=== PATIENT | female | born 1990 | race Caucasian/White ===

== ENCOUNTER 2017-03-30 09:40 | Inpatient (IN) ==
[2017-03-30] MEDS ORDERED: Ondansetron 4 MG/2 ML VIAL IVP PRN ×3 (10:20→16:23)
[2017-03-30] MEDS ORDERED: Famotidine 20 MG/2 ML VIAL IVP PRN ×2 (10:20→16:23)
[2017-03-30] MEDS ORDERED: Naloxone 0.4 MG/ML INJ IVP PRN ×2 (10:20→12:54)
[2017-03-30] MEDS ORDERED: Metoclopramide 10 MG/2 ML VIAL IVP ONE (10:25)
[2017-03-30] MEDS ORDERED: CeFAZolin Pre 3,000 MG/100 ML 3,000 MG/100 ML BAG IVPB ONE (10:25)
[2017-03-30] MEDS ORDERED: Ringers Solution, Lactated 1,000 ML IVC ONE (10:29)
[2017-03-30] MEDS ORDERED: Oxytocin 20 units/ LR 1000 mL 20 UNIT/1,000 ML BAG IVC SCH ×2 (10:30→14:00)
[2017-03-30] MEDS ORDERED: Ringers Solution, Lactated 1,000 ML IVC SCH ×2 (10:30→13:00)
[2017-03-30 10:31] LABS: Basophils % 0.3 %; Eosinophils % 0.2 %; Hematocrit 35.4 % (35.3-44.9); Hemoglobin 11.3 g/dL (11.5-15.4); Immature Granulocytes % 0.6 % (0-4); Lymphocytes # 1.7 K/mcL (0.6-4.6); Lymphocytes % 19.7 %; Mean Corpuscular HGB Conc 31.9 g/dL (31.6-35.5); Mean Corpuscular Hemoglobin 27.5 pg (28.0-33.3); Mean Corpuscular Volume 86.1 fL (83.0-100.0); Mean Platelet Volume 12.3 fL (9.4-12.4); Monocytes # 0.8 K/mcL (0.0-1.3); Monocytes % 9.2 %; Neutrophils # 6.1 K/mcL (1.6-8.9); Platelet Count 190 K/mcL (140-400); Red Blood Count 4.11 M/mcL (3.82-4.97); Red Cell Distribution Width 12.9 % (11.5-14.5)
--- NOTE | 2017-03-30 10:52 | OB/GYN History & Physical ---
Date of Encounter: 03/30/17 Time of Encounter: 10:45 Assessment and Plan (1) 39 weeks gestation of Current visit: Yes Status: Acute at 39 4/7 weeks gestation who presents to L&D for due to history of 2 prior c-sections. Plan: -NPO -LR IVF -pre-op cefazolin -zofran, pepcid prn (2) Previous delivery, antepartum Current visit: Yes Status: Acute History of Present Illness Chief complaint: HPI: Ms. Holly is a 27 year old female at 39 4/7 weeks gestation who presents to L&D for . She has had an uncomplicated . She requires a because she has a history of 2 prior sections. She denies contractions , vaginal bleeding or discharge. She does have some nausea and heartburn. She denies LYLE, dizziness, vision changes, CP, SOB, abd pain. GBS - O+, antibiody negative Hep B negative HIV negative RPR negative Rubella immune Varicella immune Obstetrical History - Pregnancies : 3 Para: 2 Term: 2 : 0 Ab's: 0 Livin Medications and Allergies Formula Tablet 1 tab OP DAILY 03/30/17 [History] 3 Allergy/AdvReac Type Severity Reaction Status Date / Time No Known Drug Allergies Allergy none Verified 03/30/17 10:28 Review of System OB All systems PM: reviewed and no additional remarkable complaints except as stated Exam - Constitutional Constitutional: well developed, well nourished, no acute distress, average body habitus - HEENT HEENT: EOMI, PERRL, Normocephaly, Mucus Membranes Moist - Neck Neck exam: normal inspection, supple, trachea midline - Lungs Respiratory exam: CTAB - Cardiovascular Cardiovascular exam: RRR, +S1, +S2 - Abdomen Abdomen: Present: bowel sounds normal, gravid, non tender - Extremities Extremities exam: normal capillary refill, normal inspection, pedal edema (mild) , radial pulses palpable and symmetrical Deep Tendon Reflex Grade: 2+ Normal - Uterus Uterus exam: Present: normal size, normal contour Results Result Diagrams: 03/30/17 10:18 Abnormal lab results Hgb 11.3 g/dL (11.5-15.4) L 03/30/17 10:18 MCH 27.5 pg (28.0-33.3) L 03/30/17 10:18 All other labs normal. - VTE Reasons for not Prescribing Prophylaxis: Treatment not Indicated - Low risk for VTE - Attending Attestation I examined this patient and my medical decision-making was reviewed with the Resident Physician. I agree with the documented findings, disposition and treatment plan as described except to the extent set forth below.
--- NOTE | 2017-03-30 11:27 | Anesthesia Evaluation PreOp ---
Date of Encounter: 03/30/17 Time of Encounter: 11:25 - Past History Planned Operation: Repeat C-S Cardiac History: Denies any Significant Hx Pulmonary History: Denies Any Significant HX COMPUTER TECHNOLOGY INSTRUCTOR History: Denies Any Significant HX Other Medical History: Denies Any Significant HX Anesthesia History: Past Anesthesia (C-S, labor epidural), Problems (PDPH after spinal; difficulty placing first spinal; itching with morphine (but patient is ok to receive morphine with this spinal)) Medications and Allergies Formula Tablet 1 tab OP DAILY 03/30/17 [History] 3 Allergy/AdvReac Type Severity Reaction Status Date / Time No Known Drug Allergies Allergy none Verified 03/30/17 10:28 - Meds/Allergy Pre-op Review Medications Reviewed: Yes Allergies Reviewed: Yes Beta Blockers on Current Med List: No Anesthesia Results - Labs 03/30/17 10:18 Anesthesia Exam Weight: 95 kg NPO (# of Hours): > 8 hrs - HEENT Pupil (Motor): Pupils equal, EOMI Mallampati: II Teeth: Normal Oral Opening: Greater than 3 - COMPUTER TECHNOLOGY INSTRUCTOR LOC: Oriented COMPUTER TECHNOLOGY INSTRUCTOR Motor: Normal RUE, Normal LUE, Normal RLE, Normal LLE, Normal Face - Cardiac Rhythm: Regular Murmur: None - Pulmonary Breath Sounds: bilateral Clear Respiratory Effort: Symmetrical Anesthesia Assess/Plan ASA Score: 2 Modified [place] Scale for Level of Consciousness: Cooperative, oriented, and tranquil Anesthetic Plan: Regional Monitoring Plan: Standard Monitors Recovery Plan: PACU
[2017-03-30] MEDS ORDERED: *HR* Morphine Sulfate/PF 5 MG/10 ML AMPUL ONE (12:08)
[2017-03-30 12:09] LABS: Amphetamine Screen,Urine Negative ng/mL (Cutoff=1000); Barbiturate Screen,Urine Negative ng/mL (Cutoff=200); Benzodiazepines Screen,Urine Negative ng/mL (Cutoff=200); Cannabinoid Screen,Urine Negative ng/mL (Cutoff = 50); Cocaine Screen,Urine Negative ng/mL (Cutoff= 300); Opiate Screen,Urine Negative ng/mL (Cutoff=300); Phencyclidine Screen,Urine Negative ng/mL (Cutoff=25)
[2017-03-30] MEDS ORDERED: EPHEDrine 50 MG/ML VIAL ONE (12:21)
[2017-03-30] MEDS ORDERED: Ondansetron 4 MG/2 ML VIAL ONE (12:28)
[2017-03-30] MEDS ORDERED: *HR* Oxytocin 10 UNIT/ML VIAL IM ONE (12:28)
[2017-03-30] MEDS ORDERED: Dexamethasone 4 MG/ML VIAL ONE (12:28)
[2017-03-30] MEDS ORDERED: *HR* Meperidine 25 MG/ML SYRINGE IVP PRN (12:54)
[2017-03-30] MEDS ORDERED: *HR* Promethazine 25 MG/ML VIAL IVP PRN (12:54)
[2017-03-30] MEDS ORDERED: *HR* HYDROmorphone (PF) 1 MG/ML SYRINGE IVP PRN (12:54)
[2017-03-30] MEDS ORDERED: Ondansetron 4 MG/2 ML VIAL IVP ONE (12:54)
--- NOTE | 2017-03-30 13:00 | Anesthesia Procedures ---
Date of Encounter: 03/30/17 Time of Encounter: 12:08 Procedures: Anesthesia - Epidural/Spinal Patient ID/Chart reviewed: Yes Patient examined: Yes OB Eval: Gestational age: 39 OB Eval: : 2 OB Eval: Hx Para: 1 OB Eval: Contractions: Non-stressed pattern Consent Obtained: Yes Site Prep: Aseptic Technique, Sterile prep and drape, Povidone-Iodine 1% Patient position: upright Local Anesthetic: Lidocaine 1% Amount of Local Anesthetic used: 3 Interspace Used: L4-L5 Loss of Resistance (ITZ): No Blood: No CSF: Yes Paresthesia: No Spinal Needle Gauge: 25 Spinal Dose: Bupivicaine 1.6ml 0.75% duramorph 200mcg Procedure: Spinal first pass in upright position without any immediate noted complications. Pt supine for csection prep and drape. Spinal level T4 Vitals + FHT's: See anesthesia record. VSS throughout.
--- NOTE | 2017-03-30 13:50 | OB/GYN Procedure Note ---
Section - Date of procedure: 03/30/17 Preop diagnosis: desires repeat , desires sterilization Post-op diagnosis: same (adhesions) Procedure: repeat low transverse, bilateral tubal ligation, other (extensive lysis of adhesions) Surgeon: Pacheco High Estimated blood loss (cc): 700 Anesthesiologist: Val Jones Anesthesia Type: Spinal section complications: none Disposition: PACU Specimens: Placenta, Right tube segment, Left tube segment - Infant (s) Infant A Infant Delivery Date: 03/30/17 Delivery Time: 12:44 Presentation: vertex Gender: Female Viability: Viable Pounds: 7 Ounces: 13 at 1 minute: 9 at 5 minutes: 9 Specimens collected: cord blood Placenta: complete extraction - Narrative Narrative: Patient was taken to the operating room. After satisfactory spinal anesthesia was achieved, patient placed in supine position and Zendejas catheter inserted and prepped and draped in usual manner. After appropriate timeout, the abdomen was entered through a standard Maylard incision. The Matthias retractor was placed. The uterine cavity was entered sharply extended laterally. Fluid was clear. With fundal pressure the head was delivered. suctioned upon delivery of the head. The remainder of the infant was delivered, umbilical cord doubly clamped and cut, and handed to nursery staff for further evaluation. Placenta was removed. The uterus was closed with a 0 Monocryl in a single layer. At this time, uterus was noted to be adherent to the anterior abdominal wall in a dense adhesion complex. The abdominal wall to uterine adhesions were carefully lysed and ligated with 0 Vicryl. Once this was performed, uterus was exteriorized. Attention was then turned to the fallopian tubes. The distal end of each tube was resected and sent to pathology for analysis. Pedicles were ligated using 2-0 chromic. There was some bleeding from the anterior surface of the uterus from the previous dissection. This area was oversewn with a 0 Monocryl. After assurance hemostasis, the abdomen was closed in the standard fashion using 0 Vicryl on the fascia and 3-0 Monocryl in the skin. Sterile dressing was applied. Patient did well was taken to recovery in satisfactory condition. Counts were correct.
[2017-03-30] MEDS ORDERED: *HR* OxyCODONE/APAP 5/325 TABLET PO PRN (13:54)
[2017-03-30] MEDS ORDERED: Metoclopramide 10 MG/2 ML VIAL IVP PRN (13:54)
[2017-03-30] MEDS ORDERED: Simethicone 80 MG TAB.CHEW PO PRN (13:54)
[2017-03-30] MEDS ORDERED: Ibuprofen 600 MG TABLET PO PRN (13:54)
[2017-03-30] MEDS ORDERED: Acetaminophen 325 MG TABLET PO PRN ×2 (13:54→16:23)
[2017-03-30] MEDS ORDERED: Oxytocin 20 units/ LR 1000 mL 20 UNIT/1,000 ML BAG IVC ONE (16:27)
[2017-03-30] MEDS: Ibuprofen 600 MG TABLET PO PRN (19:20)
[2017-03-30] MEDS ORDERED: Sennosides 8.6 MG TABLET PO PRN ×2 (21:00)
--- NOTE | 2017-03-30 22:13 | Anesthesia Evaluation Post Op ---
Date of Encounter: 03/30/17 Time of Encounter: 14:30 - Vital Signs Vital Signs: Vital Signs Temperature 98.9 F 03/30/17 16:30 Pulse Rate 93 03/30/17 16:30 Respiratory Rate 16 03/30/17 16:30 Blood Pressure 110/72 03/30/17 16:30 O2 Sat by Pulse Oximetry 98 03/30/17 16:30 Temperature 98.6 F 03/30/17 19:51 Pulse Rate 101 03/30/17 19:51 Respiratory Rate 17 03/30/17 19:51 Blood Pressure 128/78 03/30/17 19:51 O2 Sat by Pulse Oximetry 99 03/30/17 19:51 - Lungs Lungs: Clear Ascult./Percussion - Airway Airway: Non-obstructed - Cardiovascular Regular Rate - Mental Status Mental Status: Alert & Oriented, Answers Appropriately - Pain Pain Scale: 0 Pain Scale used: Numeric (1 - 10) - Nausea Vomiting Nausea Vomiting: Not Present - Hydration Hydration: NPO - Discharge PostOp Status: Transfer Patient to floor
[2017-03-31] MEDS ORDERED: Ringers Solution, Lactated 0 ML ONE (00:23)
[2017-03-31] MEDS ORDERED: Oxytocin 20 units/ LR 1000 mL 20 UNIT/1,000 ML BAG IVC ONE (00:25)
[2017-03-31] MEDS: *HR* OxyCODONE/APAP 5/325 TABLET PO PRN ×4 (03:41→21:16)
[2017-03-31 06:25] LABS: Basophils % 0.4 %; Eosinophils % 0.3 %; Hematocrit 32.3 % (35.3-44.9); Hemoglobin 10.1 g/dL (11.5-15.4); Immature Granulocytes % 0.4 % (0-4); Lymphocytes # 1.8 K/mcL (0.6-4.6); Lymphocytes % 15.3 %; Mean Corpuscular HGB Conc 31.3 g/dL (31.6-35.5); Mean Corpuscular Hemoglobin 27.4 pg (28.0-33.3); Mean Corpuscular Volume 87.8 fL (83.0-100.0); Mean Platelet Volume 11.7 fL (9.4-12.4); Monocytes # 1.1 K/mcL (0.0-1.3); Monocytes % 9.3 %; Neutrophils # 8.5 K/mcL (1.6-8.9); Platelet Count 182 K/mcL (140-400); Red Blood Count 3.68 M/mcL (3.82-4.97); Red Cell Distribution Width 13.1 % (11.5-14.5); Segmented Neutrophils % 74.3 %
[2017-03-31] MEDS: Simethicone 80 MG TAB.CHEW PO PRN ×2 (06:29→20:18)
--- NOTE | 2017-03-31 08:30 | OB/GYN Progress Note ---
Date of Encounter: 03/31/17 Time of Encounter: 08:15 - Assessment and Plan (1) Status post delivery Current Visit: Yes Status: Acute Denies abdominal discomfort. Minial vaginal bleeding that is improving. Mother is nursing baby. - Conintue pain control PRN. - Senna PRN for constipation. - Continue vitamins. (2) anemia Current Visit: Yes Status: Acute Hgb stable at 10.1. - Continue iron supplement. Subjective - Subjective Principal diagnosis: S/P Interval history: Patient is a 27 F that underwent repeat low transverse and BTL yesterday. When seen today, patient says that she has minor vaginal bleeding, but it has been improving since yesterday. She denies any LYLE, vision changes, chest pain, fever, chills, swelling, or abdominal discomfort. Patient reports she has been her baby. Patient reports: appetite normal, voiding normally, pain well controlled, ambulating normally : doing well Objective - Vital Signs Latest vital signs: Vital Signs Temp Pulse Resp BP Pulse Ox 03/31/17 07:40 97.9 F 86 16 106/68 03/31/17 03:30 97.7 F 94 14 104/65 98 03/30/17 23:45 98.8 F 84 14 102/68 97 03/30/17 19:51 98.6 F 101 17 128/78 99 03/30/17 19:06 98.5 F 94 16 116/70 03/30/17 18:00 98.5 F 100 16 112/68 100 03/30/17 17:00 98.3 F 88 16 112/76 98 03/30/17 16:30 98.9 F 93 16 110/72 98 Intake and Output 03/30/17 03/31/17 03/31/17 23:59 07:59 15:59 Intake Total 3300 / 3300 Output Total 1300 / 1300 1900 / 1900 Balance -1300 / -1300 1400 / 1400 Intake: IV Fluids 1000 / 1000 Pitocin 20 unit In 1,000 ml @ 1000 / 1000 125 mls/hr IVC .Q8H ITALO Rx#: [id number] Oral 2300 / 2300 Output: Urine 1900 / 1900 Urethral (Zendejas) 1900 / 1900 Catheter 1300 / 1300 - Exam Extremities: Present: normal, other (Pedal pulses intact bilaterally. ). Absent : tenderness, edema Abdomen: Present: normal appearance, soft. Absent: tenderness Incision: Present: normal, intact, dressed Uterus: Present: normal, firm Comments: CN II-XII intact. No focal deficits noted. DTRs +2 in upper and lower extremities bilaterally. - Labs Labs: Laboratory Results - last 24 hr 03/30/17 03/30/17 03/31/17 10:18 10:18 06:15 WBC 8.7 11.4 H RBC 4.11 3.68 L Hgb 11.3 L 10.1 L Hct 35.4 32.3 L MCV 86.1 87.8 MCH 27.5 L 27.4 L MCHC 31.9 31.3 L RDW 12.9 13.1 Plt Count 190 182 MPV 12.3 11.7 Immature Gran % 0.6 0.4 Seg Neutrophils % 70.0 74.3 Lymphocytes % 19.7 15.3 Monocytes % 9.2 9.3 Eosinophils % 0.2 0.3 Basophils % 0.3 0.4 Neutrophils # 6.1 8.5 Lymphocytes # 1.7 1.8 Monocytes # 0.8 1.1 Eosinophils # 0.0 0.0 Basophils # 0.0 0.0 Urine Opiates Screen Negative Ur Barbiturates Screen Negative Ur Phencyclidine Scrn Negative Ur Amphetamines Screen Negative U Benzodiazepines Scrn Negative Urine Cocaine Screen Negative U Marijuana (THC) Screen Negative
[2017-03-31] MEDS ORDERED: Prenatal Vit/FA 1 EACH TABLET PO SCH ×2 (09:00)
[2017-03-31] MEDS ORDERED: NON-FORMULARY MEDICATION 1 EACH EACH (Prenatal Formula Tablet 1 TAB) OP SCH (09:00)
[2017-03-31] MEDS: Ibuprofen 600 MG TABLET PO PRN ×2 (10:05→20:18)
[2017-03-31] MEDS ORDERED: Lanolin 7 G OINT...G. TP PRN (17:15)
[2017-04-01] MEDS: *HR* OxyCODONE/APAP 5/325 TABLET PO PRN ×3 (01:21→11:04)
[2017-04-01] MEDS: Ibuprofen 600 MG TABLET PO PRN ×2 (04:43→11:04)
--- NOTE | 2017-04-01 08:28 | Discharge Summary ---
Date of Encounter: 04/01/17 Time of Encounter: 08:30 - Discharge Diagnosis (1) Status post delivery Priority: Primary Status: Acute - Discharge Medications Prescriptions: OxyCODONE/APAP 5/325 [Percocet 5/325 MG] 1 each PO Q4HR PRN #42 tablet PRN Reason: Moderate pain 4-6 Ibuprofen [Motrin] 600 mg PO Q6HR PRN #30 tablet PRN Reason: Cramping Ferrous Sulfate 325 mg PO DAILY #30 tablet Home Medications: Formula Tablet 1 tab OP DAILY 03/30/17 [History] Ferrous Sulfate 325 mg PO DAILY #30 tablet 04/01/17 [Rx] Ibuprofen [Motrin] 600 mg PO Q6HR PRN #30 tablet 04/01/17 [Rx] OxyCODONE/APAP 5/325 [Percocet 5/325 MG] 1 each PO Q4HR PRN #42 tablet 04/01/17 [Rx] Allergies/Adverse Reactions: 3 Allergy/AdvReac Type Severity Reaction Status Date / Time No Known Drug Allergies Allergy none Verified 03/30/17 10:28 Data Procedures and tests throughout hospitalization: Laboratory Tests 03/30/17 03/30/17 03/31/17 10:18 10:18 06:15 WBC 8.7 11.4 H RBC 4.11 3.68 L Hgb 11.3 L 10.1 L Hct 35.4 32.3 L MCV 86.1 87.8 MCH 27.5 L 27.4 L MCHC 31.9 31.3 L RDW 12.9 13.1 Plt Count 190 182 MPV 12.3 11.7 Immature Gran % 0.6 0.4 Seg Neutrophils % 70.0 74.3 Lymphocytes % 19.7 15.3 Monocytes % 9.2 9.3 Eosinophils % 0.2 0.3 Basophils % 0.3 0.4 Neutrophils # 6.1 8.5 Lymphocytes # 1.7 1.8 Monocytes # 0.8 1.1 Eosinophils # 0.0 0.0 Basophils # 0.0 0.0 Urine Opiates Screen Negative Ur Barbiturates Screen Negative Ur Phencyclidine Scrn Negative Ur Amphetamines Screen Negative U Benzodiazepines Scrn Negative Urine Cocaine Screen Negative U Marijuana (THC) Screen Negative Date of admission: 03/30/17 09:40 Primary care physician: PCP NONE Discharging clinician: Ancelmo Nielson Anticipated date of discharge: 04/01/17 - Patient Status Disposition: Home, Self-Care Condition: Good Functional capacity at discharge: independent ambulation Overall status at discharge: patient is progressing back to baseline - Discharge Instructions Follow Up With: NONE,PCP [Primary Care Provider] - Pacheco High MD [Partnered Physician] - - Diet and Activity Activity: increase activity as tolerated Diet: advance to your usual diet Hospital Course Reason for admission: section Delivery: section Episiotomy: none Laceration: none Other procedures: none complications: none Discharge diagnosis: IUP at term delivered Hospital course: Patient is a 27-year-old female who presented for repeat section. Patient had a history of 2 previous section, scheduled for repeat patient's hospital course is unremarkable diet was advanced she was encouraged to ambulate and by hospital day #2 patient was ready to be discharged home. She was discharged home with prescription for Percocet 5 mg #42 ibuprofen 600 mg #30 and iron sulfate 325 #30 she will follow-up in the office in 2 weeks. Time Attestation: Total time spent providing and/or coordinating discharge services: - VTE Reasons for not Prescribing Prophylaxis: Treatment not Indicated - Low risk for VTE Documentation of Mechanical Device: Intermittent pneumatic compression device Exam - Constitutional Vitals: Temp Pulse Resp BP Pulse Ox 98.8 F 90 16 113/74 99 03/31/17 19:41 03/31/17 19:41 03/31/17 19:41 03/31/17 19:41 03/31/17 19:41 General appearance IM: A&O X 3, no acute distress, answers questions appropriately - Respiratory Respiratory exam: Present: CTAB - Cardiovascular Cardiovascular exam IM: Present: RRR - GI/Abdominal GI/Abdominal exam IM: normal bowel sounds Incision: normal, dry, intact - Rectal Rectal exam: deferred - Uterus Position: At Umbilicus
[2017-04-01] MEDS: Simethicone 80 MG TAB.CHEW PO PRN (10:43)
== END 2017-04-01 12:55 | disposition home or self-care (01) | DRG 766 ==
LOC: 1NENULAB 09:40 → 1NENUOBS 16:00
PROVIDERS: ADMIT Obstetrics & Gynecology; ATTEND Obstetrics & Gynecology